=== PATIENT | male | born 1995 | race Caucasian/White ===

== ENCOUNTER 2022-12-25 20:33 | Emergency (ER) | payer OTHER ==
[~2022-12-25] VITALS: Ht 167.6 cm; Wt 70.3 kg
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
--- NOTE | 2022-12-25 22:50 | NUR ---
PT EXAMINED BY DR SHYLA BRAVO
[2022-12-25] MEDS ORDERED: CYCLOBENZAPRINE 10 MG TABLET PO ONE (23:00)
[2022-12-25] MEDS ORDERED: KETOROLAC TROMETHAMINE INJ 60 MG/2 ML VIAL IM ONE (23:00)
[2022-12-25] MEDS ORDERED: CYCLOBENZAPRINE 10 MG TABLET ONE (23:05)
[2022-12-25] MEDS ORDERED: KETOROLAC TROMETHAMINE INJ 30 MG/ML VIAL ONE (23:05)
[2022-12-25 23:13] LABS: BASOPHILS % (AUTO) 0.6 % (0.0-2.0); EOSINOPHILS % (AUTO) 0.8 % (0.0-6.0); HEMATOCRIT 45 % (39-51); HEMOGLOBIN 15.3 g/dL (13.5-17.5); LYMPHOCYTES # (AUTO) 2.3 K/uL (0.8-4.8); MEAN CORPUSCULAR HGB CONC 34 g/dl (31.0-36.0); MEAN CORPUSCULAR VOLUME 90 fL (80-96); MONOCYTES # (AUTO) 0.6 K/uL (0.1-1.30); MONOCYTES % (AUTO) 7.9 % (2.0-12.0); NEUTROPHILS # (AUTO) 4.9 K/uL (1.8-8.9); NEUTROPHILS % (AUTO) 61.7 % (43.0-81.0); PLATELET COUNT (AUTO) 240 K/uL (150-450); RED BLOOD CELL COUNT(AUTO) 5.03 MIL/uL (4.5-6.0)
[2022-12-25 23:23] LABS: CALCIUM, SERUM 9.5 mg/dL (8.5-10.1); CREATININE 0.9 mg/dL (0.6-1.3); POTASSIUM 3.4 mmol/L (3.5-5.1)
[2022-12-25 23:29] LABS: ALBUMIN 4.1 g/dL (3.4-5.0); BILIRUBIN,DIRECT 0.1 mg/dL (0.0-0.2); BILIRUBIN,TOTAL 0.5 mg/dL (0.2-1.0); TOTAL PROTEIN, SERUM 7.8 g/dL (6.4-8.2)
--- NOTE | 2022-12-26 01:47 | NUR ---
Patient discharged to home in stable condition. Written and verbal after care instructions given to pt and to her girfriend. Patient verbalizes understanding of instruction.
[2022-12-26 01:48] VITALS: BP 135/93; TEMP 98.2; O2SAT 98
== END 2022-12-26 01:49 | disposition home or self-care (01) ==
LOC: ER 20:39
DX: S06.0X0A Concussion without loss of consciousness, initial encounter (principal); K62.5 Hemorrhage of anus and rectum; V89.2XXA Person injured in unspecified motor-vehicle accident, traffic, initial encounter; Y93.89 Activity, other specified; Y92.89 Other specified places as the place of occurrence of the external cause; Y99.8 Other external cause status
CPT/HCPCS: 99285; 70450; 96372; 74176; 85025; 80048; 83690; 80076; 36415; 85730; J1885